=== PATIENT | male | born 1955 | race Caucasian/White ===

== ENCOUNTER 2017-11-27 13:27 | Emergency (ER) | payer SELFPAY ==
[2017-11-27] MEDS ORDERED: Zofran 4 MG/2 ML VIAL IV ONE ×2 (14:07→15:09)
[2017-11-27] MEDS ORDERED: Sodium Chloride 0.9% 1000 ML 1,000 ML IV STA (14:07)
[2017-11-27] MEDS ORDERED: PROTONIX 40 MG IV IV ONE ×2 (14:07→14:15)
[2017-11-27] MEDS ORDERED: MORPHINE SULFATE 2 MG INJ IV ONE (14:07)
[2017-11-27] MEDS ORDERED: MORPHINE SULFATE 2 MG INJ ONE (14:15)
[2017-11-27] MEDS ORDERED: Zofran 4 MG/2 ML VIAL ONE ×2 (14:15→15:14)
[2017-11-27] MEDS ORDERED: Sodium Chloride 0.9% 1000 ML 1,000 ML ONE ×2 (14:15→15:15)
[2017-11-27 14:18] LABS: BASOPHIL % 0.6 % (0.0-0.4); Basophil (Absolute #) 0.05 (0-0.4); Eosinophil % 0.8 % (0.00-5.0); Eosinophil (Absolute #) 0.07 (0-0.5); Granulocyte Absolute (ANC) 7.12 (1.4-6.9); Granulocytes % 79.1 % (36.0-66.0); Hematocrit 39.5 % (42-50); Hemoglobin 12.7 gm/dl (12.5-18.0); Lymphocyte (Absolute #) 1.07 (1.0-4.6); Lymphocytes % 11.9 % (24.0-44.0); Mean Cell Volume 90.6 fl (78-100); Mean Corpuscular Hemoglobin 29.1 pg (26-32); Mean Corpuscular Hgb Concent. 32.2 g/dl (32-36); Mean Platelet Volume 10.6 fl (6-9.5); Monocyte (Absolute #) 0.68 (0.0-1.3); Monocytes % 7.6 % (0.0-12.0); Platelet Count 312 K/mm3 (150-450); Red Blood Count 4.36 M/mm3 (4.1-5.6); Red Cell Distribution Width 14.6 % (11.5-14.0)
--- NOTE | 2017-11-27 14:25 | ERPHSYRPT ---
- History of Present Illness Time Seen by Provider: 11/27/17 13:40 Historian: patient Exam Limitations: no limitations Patient Subjective Stated Complaint: Pt states "I have been vomiting for the past 3 days. It happens every time I lay down. I am just vomiting acid." Triage Nursing Assessment: PT alert and oriented X 3, skin pwd. Pt ambulates with a shuffling gait, able to speak in clear full sentences. Physician History: patient with history of peptic ulcer who presents with abdominal pain/vomiting. Patient states that he had upper GI in [facility] approximately 3-4 months ago,, which showed erosive esophagitis/gastritis. Patient was placed on Protonix at that time, which helped decrease symptoms significant. Patient unable to fill Protonix and notice he was having more epigastric abdominal pain , sharp at times, intermittent and localized. Patient states that he is vomiting "acid" materials. Patient denies any blood in his vomitus.. Patient states he recently moved to [place] over the past month and continues to have abdominal pain/vomiting. Patient noted he has decreased appetite over the past 3-4 days in his vomited more than 10 times per day. Patient denies any fever, chills, cough, chest pain, shortness of breath, dizziness or weakness. Patient states he is taking Prilosec but doesn't seem to think that it is helpful. Patient denies any alcohol or drug use. Timing/Duration: week(s) (4), intermittent, gradual onset Activities at Onset: other (sometimes associated with food intake) Quality: burning Abdominal Pain Onset Location: epigastric Pain Radiation: no radiation Severity of Pain-Max: moderate Severity of Pain-Current: moderate Modifying Factors: Improves With: antacids (iimproves), lying down (worsen), position (sitting up improved symptoms) Associated Symptoms: loss of appetite, nausea, vomiting, No back, No chest pain , No diaphoresis, No fever/chills, No fatigue, No neck pain, No weakness Previous symptoms: same symptoms as today Allergies/Adverse Reactions: No Known Drug Allergies Allergy (Unverified 11/27/17 13:45) Home Medications: Omeprazole [Prilosec] 20 mg PO DAILY 11/27/17 [History] Hx Tetanus, Diphtheria Vaccination/Date Given: Yes Hx Influenza Vaccination/Date Given: Yes Hx Pneumococcal Vaccination/Date Given: No Immunizations Up to Date: Yes - Review of Systems Constitutional: No Fever, No Chills Eyes: No Symptoms Ears, Nose, & Throat: No Symptoms Respiratory: No Cough, No Dyspnea Cardiac: No Chest Pain, No Edema, No Syncope Abdominal/Gastrointestinal: Abdominal Pain, Nausea, Vomiting, No Diarrhea, No Constipation, No Hematochezia, No Melena Genitourinary Symptoms: No Dysuria Musculoskeletal: No Symptoms, No Back Pain, No Neck Pain Skin: No Symptoms, No Rash Neurological: No Symptoms, No Dizziness, No Focal Weakness, No Sensory Changes Psychological: No Symptoms Endocrine: No Symptoms All Other Systems: Reviewed and Negative - Past Medical History Pertinent Past Medical History: Yes Neurological History: No Pertinent History ENT History: No Pertinent History Cardiac History: Hypertension Respiratory History: No Pertinent History Endocrine Medical History: No Pertinent History Musculoskeletal History: No Pertinent History GI Medical History: GERD, Ulcer History: No Pertinent History Psycho-Social History: No Pertinent History Male Reproductive Disorders: No Pertinent History Other Medical History: bleeding ulcer in abdomen - Past Surgical History Past Surgical History: Yes Other Surgical History: scope. left hip surgery. hernia - Social History Smoking Status: Current every day smoker How long have you smoked: 40 years Exposure to second hand smoke: Yes Drug Use: none Patient Lives Alone: No - Nursing Vital Signs Nursing Vital Signs: Initial Vital Signs Temperature 97.9 F 11/27/17 13:38 Pulse Rate 96 H 11/27/17 13:38 Respiratory Rate 18 11/27/17 13:38 Blood Pressure 162/105 11/27/17 13:38 O2 Sat by Pulse Oximetry 96 11/27/17 13:38 Pain Scale Pain Intensity 4 - Physical Exam General Appearance: no apparent distress, alert Eye Exam: PERRL/EOMI, eyes nml inspection Ears, Nose, Throat Exam: normal ENT inspection, pharynx normal, moist mucous membranes Neck Exam: normal inspection, non-tender, supple, full range of motion Respiratory Exam: normal breath sounds, lungs clear, No respiratory distress Cardiovascular Exam: regular rate/rhythm, normal heart sounds Gastrointestinal/Abdomen Exam: soft, tenderness (Mild tenderness to palpation to epiastric area), No mass Back Exam: normal inspection, normal range of motion, No CVA tenderness, No vertebral tenderness Extremity Exam: normal inspection, normal range of motion, pelvis stable Neurologic Exam: alert, oriented x 3, cooperative, normal mood/affect, nml cerebellar function, sensation nml, No motor deficits Skin Exam: normal color, warm, dry SpO2: 96 Oxygen Delivery: Room Air - Course Nursing assessment & vital signs reviewed: Yes - Radiology Exams Abdomen X-ray Interpretation: Teleradiologist Report, Other (no obstruction noted, upright chest is normal) Ordered Tests: Active Orders 24 hr Category Date Time Status IV Insertion STAT Care 11/27/17 14:07 Active OBSTR/ACUTE ABDOMEN SERIES Stat Exams 11/27/17 14:07 Completed AMYLASE Stat Lab 11/27/17 14:10 Completed BMP Stat Lab 11/27/17 17:17 Completed CBC W DIFF Stat Lab 11/27/17 14:10 Completed CMP Stat Lab 11/27/17 14:10 Completed LIPASE Stat Lab 11/27/17 14:10 Completed UA W/RFX UR CULTURE Stat Lab 11/27/17 14:07 Ordered Urine Triage Profile Stat Lab 11/27/17 14:07 Ordered Medication Summary Discontinued Medications Generic Name Dose Route Start Last Admin Trade Name Caleq PRN Reason Stop Dose Admin Sodium Chloride 1,000 mls @ 999 mls/hr 11/27/17 14:07 11/27/17 14:16 Sodium Chloride 0.9% 1000 Ml IV 11/27/17 15:07 999 mls/hr .Q1H1M STA Administration Sodium Chloride Confirm 11/27/17 14:15 Sodium Chloride 0.9% 1000 Ml Administered 11/27/17 14:16 Dose 1,000 mls @ ud .ROUTE .STK-MED ONE Potassium Chloride Confirm 11/27/17 15:05 Potassium Chloride 20 Meq In Water 100ml Administered 11/27/17 15:06 Dose 100 mls @ ud IV .STK-MED ONE Potassium Chloride 20 meq in 100 mls @ 50 mls/hr 11/27/17 15:07 11/27/17 15: 21 Potassium Chloride 20 Meq In Water 100ml IV 11/27/17 17:06 50 mls/hr STAT ONE Administration Sodium Chloride Confirm 11/27/17 15:15 Sodium Chloride 0.9% 1000 Ml Administered 11/27/17 15:16 Dose 1,000 mls @ ud .ROUTE .STK-MED ONE Morphine Sulfate 2 mg 11/27/17 14:07 11/27/17 14:17 Morphine Sulfate 2 Mg Inj IV 11/27/17 14:08 2 mg STAT ONE Administration Morphine Sulfate Confirm 11/27/17 14:15 Morphine Sulfate 2 Mg Inj Administered 11/27/17 14:16 Dose 2 mg .ROUTE .STK-MED ONE Morphine Sulfate 4 mg 11/27/17 15:09 11/27/17 15:21 Morphine Sulfate 4 Mg Inj IV 11/27/17 15:10 4 mg STAT ONE Administration Morphine Sulfate Confirm 11/27/17 15:15 Morphine Sulfate 4 Mg Inj Administered 11/27/17 15:16 Dose 4 mg .ROUTE .STK-MED ONE Ondansetron HCl 4 mg 11/27/17 14:07 11/27/17 14:16 Zofran 4 Mg/2 Ml Vial IV 11/27/17 14:08 4 mg STAT ONE Administration Ondansetron HCl Confirm 11/27/17 14:15 Zofran 4 Mg/2 Ml Vial Administered 11/27/17 14:16 Dose 4 mg .ROUTE .STK-MED ONE Ondansetron HCl 4 mg 11/27/17 15:09 11/27/17 15:22 Zofran 4 Mg/2 Ml Vial IV 11/27/17 15:10 4 mg STAT ONE Administration Ondansetron HCl Confirm 11/27/17 15:14 Zofran 4 Mg/2 Ml Vial Administered 11/27/17 15:15 Dose 4 mg .ROUTE .STK-MED ONE Pantoprazole Sodium 40 mg 11/27/17 14:07 11/27/17 14:16 Protonix 40 Mg Iv IV 11/27/17 14:08 40 mg STAT ONE Administration Pantoprazole Sodium Confirm 11/27/17 14:15 Protonix 40 Mg Iv Administered 11/27/17 14:16 Dose 40 mg IV .STK-MED ONE Potassium Chloride Confirm 11/27/17 15:05 Klor Con 10 Meq Administered 11/27/17 15:06 Dose 40 meq PO .STK-MED ONE Potassium Chloride 40 meq 11/27/17 15:08 11/27/17 15:21 Klor Con 10 Meq PO 11/27/17 15:09 40 meq STAT ONE Administration Lab/Rad Data: Laboratory Result Diagrams 11/27/17 14:10 11/27/17 17:17 Laboratory Results 11/27/17 11/27/17 11/27/17 Range/Units 17:17 14:10 14:10 WBC 9.0 (4.0-10.5) K/mm3 RBC 4.36 (4.1-5.6) M/mm3 Hgb 12.7 (12.5-18.0) gm/dl Hct 39.5 L (42-50) % MCV 90.6 (78-100) fl MCH 29.1 (26-32) pg MCHC 32.2 (32-36) g/dl RDW 14.6 H (11.5-14.0) % Plt Count 312 (150-450) K/mm3 MPV 10.6 H (6-9.5) fl Gran % 79.1 H (36.0-66.0) % Lymphocytes % 11.9 L (24.0-44.0) % Monocytes % 7.6 (0.0-12.0) % Eosinophils % 0.8 (0.00-5.0) % Basophils % 0.6 (0.0-0.4) % Basophils # 0.05 (0-0.4) Sodium 139 139 (137-145) mmol/L Potassium 3.1 L 2.7 L (3.5-5.1) mmol/L Chloride 92 L 87 L (98-107) mmol/L Carbon Dioxide 37 H 39 H (22-30) mmol/L Anion Gap 12.5 (5-15) MEQ/L BUN 11 12 (9-20) mg/dL Creatinine 0.72 0.81 (0.66-1.25) mg/dL Estimated GFR > 60 > 60 ML/MIN Glucose 86 102 (74-106) mg/dL Calcium 8.6 9.8 (8.4-10.2) mg/dL Total Bilirubin 0.60 (0.2-1.3) mg/dL AST 28 (17-59) U/L ALT 23 (0-50) U/L Alkaline Phosphatase 162 H (38-126) U/L Serum Total Protein 7.7 (6.3-8.2) g/dL Albumin 3.9 (3.5-5.0) g/dL Amylase 71 (30-110) U/L Lipase 58 (23-300) U/L - Progress Progress: improved Progress Note: 11/27/17 14:27 patient was givenIV Protonix, Zofran and 2 mg of morphine for pain. 11/27/17 18:00 patient without any episode of vomiting in the ED. Patient was also given 20 mEq of potassium IV and 40 mEq of potassium by mouth. Patient does state that he feels improved prior to discharge Counseled pt/family regarding: lab results, diagnosis, rad results - Departure Time of Disposition: 18:01 Departure Disposition: Home Clinical Impression: Abdominal pain, Hypokalemia Condition: Stable Critical Care Time: No Instructions: Vomiting -- Adult, Hypokalemia Additional Instructions: Rx: Protonix/Zofran/KCl. Drink clear liquids and bland diet for next 1-2 days. Eat bananas as it is a good source of potassium. Return for worse abdominal pain,, vomiting, diarrhea, dizziness, weakness or any problems Prescriptions: Ondansetron [Zofran Odt] 4 mg PO Q6-8HPRN PRN #10 tab.rapdis PRN Reason: Nausea/Vomiting PANTOPRAZOLE 40 mg Tablet [Protonix 40MG Tablet] 40 mg PO QAM #30 tab Potassium Chloride 20 Meq [Klor-Con 20 MEQ] 40 meq PO DAILY 3 Days #6 tab
[2017-11-27 14:27] LABS: ALBUMIN 3.9 g/dL (3.5-5.0); ALKALINE PHOSPHATASE 162 U/L (38-126); AMYLASE 71 U/L (30-110); BLOOD UREA NITROGEN 12 mg/dL (9-20); CHLORIDE 87 mmol/L (98-107); Calcium 9.8 mg/dL (8.4-10.2); Creatinine 1 0.81 mg/dL (0.66-1.25); Glucose 102 mg/dL (74-106); LIPASE 58 U/L (23-300); SGOT/AST 28 U/L (17-59); SGPT/ALT 23 U/L (0-50); SODIUM 139 mmol/L (137-145); Total Protein 7.7 g/dL (6.3-8.2)
[2017-11-27 14:34] LABS: Carbon Dioxide 39 mmol/L (22-30)
[2017-11-27 14:35] LABS: Potassium 2.7 mmol/L (3.5-5.1)
[2017-11-27] MEDS ORDERED: POTASSIUM CHLORIDE 20 mEq IN WATER 100ML 100 ML IV ONE (15:05)
[2017-11-27] MEDS ORDERED: Klor Con 10 MEQ PO ONE ×2 (15:05→15:08)
[2017-11-27] MEDS ORDERED: POTASSIUM CHLORIDE 20 mEq IN WATER 100ML 20 MEQ/100 ML BAG IV ONE (15:07)
[2017-11-27] MEDS ORDERED: MORPHINE SULFATE 4 MG INJ IV ONE (15:09)
--- NOTE | 2017-11-27 15:14 | XRAY ---
Indication: Abdominal pain for weeks. History of bleeding ulcer. Comparison: None 2 views of the abdomen demonstrates nonspecific nonobstructed bowel gas pattern. Stomach is mildly fluid distended. No focal bowel dilatation or free air. Solid organs unremarkable. Osseous structures intact with mild spinal degenerative spondylosis, moderate/advanced left hip degenerative changes, and right hip arthroplasty. Single frontal chest demonstrate normal heart and lungs. Bony thorax intact with minimal degenerative changes. Impression: 1. Nonacute nonobstructed abdomen with chronic findings. 2. Nonacute 1 view chest.
[2017-11-27] MEDS ORDERED: MORPHINE SULFATE 4 MG INJ ONE (15:15)
[2017-11-27 17:48] LABS: ANION GAP 12.5 MEQ/L (5-15); BLOOD UREA NITROGEN 11 mg/dL (9-20); CHLORIDE 92 mmol/L (98-107); Calcium 8.6 mg/dL (8.4-10.2); Carbon Dioxide 37 mmol/L (22-30); Creatinine 1 0.72 mg/dL (0.66-1.25); Glucose 86 mg/dL (74-106); Potassium 3.1 mmol/L (3.5-5.1); SODIUM 139 mmol/L (137-145)
[2017-11-27 18:32] VITALS: BP 157/89; PULSE 63; O2SAT 95
== END 2017-11-27 18:31 | disposition home or self-care (01) ==
LOC: ED 13:27
DX: R10.13 Epigastric pain (principal); R11.10 Vomiting, unspecified; E87.6 Hypokalemia
CPT/HCPCS: 36000; 36415; 74022; 80048; 80053; 82150; 83690; 85025; 96360; 96365; 96366; 96374; 96375; 96376; 99284; J2270; J2405; J3480; A9270-GY